=== PATIENT | female | born 1995 | race Hispanic/Latino ===

== ENCOUNTER 2017-01-09 13:03 | Day surgery (SDC) | payer MEDICAID ==
[~2017-01-09] VITALS: Ht 144.8 cm; Wt 56.2 kg
[2017-01-09 13:07] VITALS: BP 98/64; PULSE 87; RESP 16; O2SAT 100
[2017-01-09 14:09] LABS: BASOPHILS % (AUTO) 0.1 % (0-3); EOSINOPHILS % (AUTO) 0 % (0-5); Mean Corpuscular Hemoglobin 22.1 pg (27.0-35.0); Mean Corpuscular Volume 70.3 fL (81-100); NEUTROPHILS % (AUTO) 90.8 % (40-74); Platelet Count 257 bil/L (150-400)
--- NOTE | 2017-01-09 15:29 | ED.REPORT ---
HPI- Female Date of Service Jan 09, 2017 ED Provider: Rashaun Johnson MD History of Present Illness: pain with walking, feels she will faint with walking. Started this am. No nausea or vomiting. did not know she was preganant. slight bleeding this am. still with moderate bleeding. no primary care. last menses may have een 11/21/2016. have 2 children at home. works at [employer] has been there 3 weeks. pain brought her to the walk in clinic. 4/10 with laying down, standing 10/10 pain is midline with some right lateral deviation Nursing Notes Stated Complaint: ABDOMINAL PAIN Chief Complaint: Female Abdominal Pain Nursing Notes Reviewed: Yes Allergies: Coded Allergies: No Known Allergies (Unverified , 01/09/17) General Time Seen by MD: 15:28 Chief Complaint Abdominal pain... (RLQ) Hx Obtained From: Patient Sudden in Onset?: Yes Past Medical History Past Medical History Denies: Asthma, Diabetes mellitus Past Surgical History Reports: Smoking History Never Smoker Social History Alcohol Use: Denies alcohol use Drug Use: Denies drug use Occupation here with brother in law. Ambulatory Status Independent Review of Systems Basic Review of Systems Eyes: Vision NL, No discharge Allergy / Immune: No allergy Psychiatric: Normal thought content Physical Exam Initial Vital Signs Vital Signs (First) Date Time Temp Pulse Resp B/P Pulse Ox O2 Delivery O2 Flow Rate FiO2 01/09/17 13:07 36.5 87 16 98/64 100 01/09/17 21:11 Room Air Initial VS: Reviewed, Vital signs normal General/Constitutional: Well-developed, Well-nourished Head / Eyes: Atraumatic, Normocephalic, PERRL ENT: Mucous membranes moist, Conjunctiva normal, No scleral icterus Neck: Supple, Non-tender, Full range of motion Respiratory: Breath sounds normal, Clear to auscultation, No respiratory distress Cardiovascular: Regular rate & rhythm, Heart sounds normal, Intact distal pulses Abdomen / GI: Soft, Non-tender, No guarding, No rebound, No distention Back: No CVA tenderness Lymphatic: No lymphadenopathy Extremities: Vascular intact, Neuro intact, No swelling, No tenderness Skin: Warm, Dry, No cyanosis Neurologic: Alert, Oriented, Nonfocal Psychiatric: Mood/affect normal, Behavior normal, Normal thought content Female Genitourinary: Telephonic Rn present Vaginal Bleeding / Discharge: Positive: Bleeding mild right adnexal tenderness General/Constitutional: Awake, Alert, No acute distress Respiratory / Chest: Atraumatic, Breath sounds NL, Breath sounds = bilat, No respiratory distress Cardiovascular: Heart rate NL, Regular rhythm, Heart sounds NL Tenderness/Guarding/Rebound: Positive: Tender RLQ... (Moderate) Interpretation & Diagnostics Interpretation & Diagnostics: US results pending Lab Results Interpretation Result Diagram: 01/09/17 1406 01/09/17 1406 Test 01/09/17 14:06 01/09/17 18:29 White Blood Count 14.2th/mm3 (3.8-10.1) Red Blood Count 3.94mil/mm3 (3.90-5.20) Hemoglobin 8.7g/dL (12.0-15.6) Hematocrit 27.7% (35.0-46.0) Mean Corpuscular Volume 70.3fL (81-100) Mean Corpuscular Hemoglobin 22.1pg (27.0-35.0) Mean Corpuscular Hemoglobin Concent 31.4% (32.0-37.0) Red Cell Distribution Width 16.1% (12.3-15.4) Platelet Count 257bil/L (150-400) Neutrophils (%) (Auto) 90.8% (40-74) Lymphocytes (%) (Auto) 6.0% (14-46) Monocytes (%) (Auto) 3.0% (4-12) Eosinophils (%) (Auto) 0% (0-5) Basophils (%) (Auto) 0.1% (0-3) Sodium Level 138mEq/L (134-144) Potassium Level 3.9mEq/L (3.5-5.2) Chloride Level 104mEq/L (97-108) Carbon Dioxide Level 20mmol/L (18-29) Blood Urea Nitrogen 10mg/dL (6-20) Creatinine 0.40mg/dL (0.57-1.00) Estimat Glomerular Filtration Rate 283mL/min (>59) Glucose Level 123mg/dL (60-99) Calcium Level 8.9mg/dL (8.5-10.1) Total Bilirubin 0.3mg/dL (0.0-1.2) Aspartate Amino Transf (AST/SGOT) 17U/L (0-50) Alanine Aminotransferase (ALT/SGPT) 16U/L (0-32) Alkaline Phosphatase 86U/L (25-150) Total Protein 6.6g/dL (6.4-8.4) Albumin 3.6g/dL (3.4-5.0) HCG Beta Subunit 5882mIU/mL Urine Color Yellow (YELLOW) Urine Appearance Clear (CLEAR,HAZY) Urine pH 6.0 (5.0-8.0) Urine Specific [place] 1.015 (1.003-1.035) Urine Protein Negativemg/dL (NEG,TRACE) Urine Glucose (UA) Negativemg/dL (NEGATIVE) Urine Ketones 15mg/dL (NEGATIVE) Urine Occult Blood Large (NEGATIVE) Urine Nitrite Negative (NEGATIVE) Urine Bilirubin Negative (NEGATIVE) Urine Urobilinogen Normalmg/dL (NORMAL) Urine Leukocyte Esterase Negative (NEGATIVE) Urine RBC >50/hpf (0-2) Urine WBC 0-5/hpf (0-5) Urine Epithelial Cells Few/hpf (NONE-MOD) Urine Crystals None seen (NONE SEEN) Urine Bacteria Few/hpf (NONE-FEW) Urine Hyaline Casts None/lpf (NONE) Urine Granular Casts None seen (NONE SEEN) Urine Waxy Casts None seen (NONE SEEN) Urine Red Blood Cell Casts None seen (NONE SEEN) Urine White Blood Cell Casts None seen (NONE SEEN) Urine Mucus None seen (None Seen) Urine Trichomonas None seen (NONE SEEN) Urine Yeast None (NONE SEEN) Urinalysis Comment None Urine Culture Reflexed Not indicated CT Abd / Pelvis Interpretation PROCEDURE: CT ABDOMEN AND PELVIS WITH CONTRAST ([id number]) INDICATIONS: right side abd pain TECHNIQUE: After the administration of intravenous contrast, 5 mm thick sections acquired from the diaphragm to the symphysis. 5 mm coronal and sagittal reformats were acquired. For radiation dose reduction, the following was used: automated exposure control, adjustment of mA and/or kV according to patient size. COMPARISON: None. FINDINGS: Image quality: Excellent. ABDOMEN: Lung bases: Lung bases are clear. Heart size is normal. Solid organs: Liver and spleen are normal in size and enhancement. Gallbladder is present. Biliary system is non dilated. Pancreas enhances normally. No adrenal nodules. Kidneys demonstrate normal size and enhancement, without hydronephrosis. Peritoneum and bowel: Bowel loops demonstrate normal wall thickness and caliber. Mixed density including high density fluid extending in the paracolic gutters about the spleen and liver. Normal appendix. Nodes and vessels: No retroperitoneal or mesenteric adenopathy by size criteria. Aorta and inferior vena cava are normal in size. Miscellaneous: No ventral hernias. PELVIS: Genitourinary: Bladder wall thickness is normal. Miscellaneous: Moderate mixed mostly high density fluid throughout the pelvis. Bones: No suspicious bony lesions. No vertebral body compression fractures. IMPRESSION: 1. Mixed mostly high density pelvic fluid extending along the paracolic gutters into the upper quadrants consistent with blood products. Given the patient's clinical history of a positive test and no intrauterine gestation identified on ultrasound findings are concerning for ectopic . Consider obstetrical consultation. 2. Findings and recommendations discussed with Dr. Johnson via telephone [phone] at 6:30 pm on 01/09/2017. Dictated by: Napoleon Parikh M.D. on 01/09/2017 at 18:52 Approved by: Napoleon Parikh M.D. on 01/09/2017 at 18:59 Re-Eval/Medical Decision Med Decision/Clinical Course 21 year old female presents for sudden onset of right lower quadrant pain since 7 am today. Patient with positive RH positive quant at 5882. US results not available, verbal report states no viable , fluid around both ovaries Ct indicates ruptured etopic . OB consult arranged, OB suggests transfer to [place]. Care of patient turned over to Dr. Johnson. I assumed care of this patient from [facility]. Workup thus far is consistent with ruptured ectopic . Second large bore IV was obtained and fluid bolus was administered. The patient remained hemodynamically stable. I had concern about the appropriateness of transferring this potentially unstable patient to a different facility. I requested TIPPING MACHINE OPERATOR AUTOMATIC evaluate the patient at the bedside. TIPPING MACHINE OPERATOR AUTOMATIC Dr. Leon evaluated the patient at the bedside and had a direct conversation with TIPPING MACHINE OPERATOR AUTOMATIC at [place]. The decision was made to keep the patient here at [facility] with plan for potential operative intervention. The patient remains moderately stable throughout my involvement in their care and they were admitted to the TIPPING MACHINE OPERATOR [employer]OM[employer] service. Consultation : Referral / Consult Name: Karlee Leon MD Call Returned at: 19:35 Note: OB. Requested transfer, says operating room is not available. Counseled Regarding: Diagnosis, Lab results, Need for follow-up, When/why to return to ED Discharge & Departure Impression: Primary Impression: Ectopic Location of ectopic : unspecified location Intrauterine status: unspecified Qualified Code: O00.90 - Unspecified ectopic without intrauterine Additional Impressions: Ruptured ectopic Hemoperitoneum Hypotension Hypotension type: unspecified hypotension type Qualified Code: I95.9 - Hypotension, unspecified Abdominal pain Abdominal location: unspecified location Qualified Code: R10.9 - Unspecified abdominal pain Disposition: ADMITTED TO HOSPITAL Discharge Condition All VS Reviewed: Yes Condition: Improved Crit Care Except Billable Proc Time Spent: 75-104 minutes Services Performed: Patient management by me, Time spent at bedside, Reviewing test results, Reviewing imaging, Discussing patient care, Documentation in record, Time with fam/surrogate EDSupervising Provider for APC: Rashaun Johnson MD Attestation Portions of this note were transcribed by Vane Pak. I, Dr. Johnson personally performed the history, physical exam and medical decision-making; I reviewed and confirmed the accuracy of the information in the transcribed note. Signed by: Julee Ramirez, 01/09/2017 at 2000. Rashaun Johnson MD Jan 09, 2017 15:28 Eunice Pinto Jan 09, 2017 16:24 VANE PAK Jan 09, 2017 19:37
[2017-01-09] MEDS ORDERED: 0.9% Sodium Chloride 1,000 ML IV ONE (16:45)
[2017-01-09] MEDS ORDERED: HYDROmorphone 0.5 mg/0.5 mL iSecure Syringe IVPUSH ONE (17:05)
[2017-01-09 18:47] LABS: COLOR,URINE YELLOW (YELLOW)
[2017-01-09 18:48] LABS: APPEARANCE,URINE CLEAR (CLEAR,HAZY); OCCULT BLOOD,URINE LARGE (NEGATIVE); UROBILINOGEN,URINE NORMAL (NORMAL)
--- NOTE | 2017-01-09 19:06 | DRSVH ---
PROCEDURE: CT ABDOMEN AND PELVIS WITH CONTRAST ([id number]) INDICATIONS: right side abd pain TECHNIQUE: After the administration of intravenous contrast, 5 mm thick sections acquired from the diaphragm to the symphysis. 5 mm coronal and sagittal reformats were acquired. For radiation dose reduction, the following was used: automated exposure control, adjustment of mA and/or kV according to patient siz e. COMPARISON: None. FINDINGS: Image quality: Excellent. ABDOMEN: Lung bases: Lung bases are clear. Heart size is normal. Solid organs: Liver and spleen are normal in size and enhancement. Gallbladder is present. Biliary system is non dilated. Pancreas enhances normally. No adrenal nodules. Kidneys demonstrate normal size and enhancement, without hydronephrosis. Peritoneum and bowel: Bowel loops demonstrate normal wall thickness and caliber. Mixed density inclu ding high density fluid extending in the paracolic gutters about the spleen and liver. Normal append ix. Nodes and vessels: No retroperitoneal or mesenteric adenopathy by size criteria. Aorta and inferior vena cava are normal in size. Miscellaneous: No ventral hernias. PELVIS: Genitourinary: Bladder wall thickness is normal. Miscellaneous: Moderate mixed mostly high density fluid throughout the pelvis. Bones: No suspicious bony lesions. No vertebral body compression fractures. IMPRESSION: 1. Mixed mostly high density pelvic fluid extending along the paracolic gutters into the upper quadra nts consistent with blood products. Given the patient's clinical history of a positive test and no intrauterine gestation identified on ultrasound findings are concerning for ectopic . Consider obstetrical consultation. 2. Findings and recommendations discussed with Dr. Johnson via telephone [phone] at 6:30 pm on . Dictated by: Napoleon Parikh M.D. on 01/09/2017 at 18:52 Approved by: Napoleon Parikh M.D. on 01/09/2017 at 18:59
[2017-01-09 19:53] VITALS: BP 121/57; PULSE 91; RESP 19; O2SAT 100
[2017-01-09 21:11] VITALS: BP 125/50; PULSE 94; RESP 23; O2SAT 100
[2017-01-09] MEDS ORDERED: CeFAZolin Inj 2 GM in IV Premix 1 EACH IV SCH (21:15)
--- NOTE | 2017-01-09 21:22 | PCM.HPSURG ---
Subjective Date of Service: Jan 09, 2017 Referring Provider: Admitting Physician: Primary Care Physician: Nopcp Attending Physician: Chief Complaint Abdominal pain History of Present Illness 21 Y LMP 7 weeks ago Sudden suprapubic pain radiates to the periumbilical area. Pain was 10/10 and now down to 6/10. No N/V. OB Hx: Previous 2 then a CS 10 months ago at [place] Allergy Allergies: Coded Allergies: No Known Allergies (Unverified , 01/09/17) Social History Hx Alcohol Use: No Hx Substance Use: No Hx Tobacco Use: No PMH Cardiovascular History History of Heart Problems?: No Respiratory History of Respiratory Problem: No Neurological History Hx Neurologic Problems?: No Gastrointestinal History HX of GI Problems?: No Social History Hx Alcohol Use: NoHx Substance Use: No Smoking Status: Never Smoker Family History PMH Family Member: Mother (HTN ) Review of Systems Constitutional: Denies: Fever Respiratory: Denies: Cough Gastrointestinal: Denies: Nausea, Vomiting Genitourinary: Denies: Dysuria Skin: Denies: Bruising Psychologic: Denies: Disorientation Endocrine: Denies: Change in Appitite H&P Surgical Exam Exam Neck: Supple Lungs: Clear to Auscultation, Clear to Percussion Heart: Regular Rate/Rhythm, Normal S1, Normal S2 Abdomen: Soft, Other (suprapubic and periumbilical tenderness, no rebound tenderness. ) Neuro: Reflexes 2+ Assessment & Plan Assessment 21 Y Highly suspecting ruptured ectopic based on abdominal pain Beta HCG Quant 5000+ free high density fluid in abdomen by US and CT. Unable to visualize adnexal mass by imaging possibly secondary to the blood in the pelvic cavity. In presence of and family member, pt was offered diagnostic laparoscopy with possible salpingectomy , oophorectomy and possible laparotomy observation as an alternative but risk of internal hemorrhage with current anemia outweigh the benefits of observation. Patient desires to proceed with surgery. Surgery risk, benefits and alternatives discussed in details, risks includes and not limited to loss of fertility, infection, bleeding, injury to adjacent organs, second surgery and risk of anesthesia. Informed consent was signed. All questions answered. Online Producer via phone was used #[id number](bCODE). Karlee Leon MD Jan 09, 2017 21:21
[2017-01-09] MEDS ORDERED: Succinylcholine Chloride 20 mg/mL 5 mL Inj ONE (21:43)
[2017-01-09] MEDS ORDERED: Dexamethasone 4 mg/mL Inj ONE (21:43)
[2017-01-09] MEDS ORDERED: EPHEDrine/NS 5 mg/mL 5 mL Syringe ONE (21:43)
[2017-01-09] MEDS ORDERED: Glycopyrrolate 0.2 MG/ML 1mL Inj ONE (21:43)
[2017-01-09] MEDS ORDERED: Propofol 10,000 mCg/mL 20 mL Inj ONE (21:43)
[2017-01-09] MEDS ORDERED: Rocuronium 10 mg/mL 5 mL Inj ONE (21:43)
[2017-01-09] MEDS ORDERED: Ondansetron 2 mg/mL 2 mL Inj ONE (21:43)
[2017-01-09] MEDS ORDERED: fentaNYL-PF 50 mCg/mL 2 mL Inj ONE (21:43)
[2017-01-09] MEDS ORDERED: Neostigmine 1 mg/mL 10 mL Inj ONE (21:43)
[2017-01-09] MEDS ORDERED: Lactated Ringer's 1,000 ML IV ONE (21:47)
[2017-01-09 21:49] VITALS: BP 118/55; PULSE 101; RESP 19; O2SAT 100
[2017-01-09] MEDS ORDERED: Lactated Ringer's 500 ML IV PRN (22:12)
[2017-01-09] MEDS ORDERED: Lactated Ringer's 1,000 ML IV SCH (22:12)
--- NOTE | 2017-01-09 22:12 | PCM.HPANE ---
Patient Data Surgeon Admitting Provider: Attending Provider:Karlee Leon MD Primary Care Physician:Ann Other Provider: Reason for Visit Ruptured Ectopic Ht/WT & BMI Height (Feet): 4 Height (Inches): 9 Weight (Kilograms): 56 Body Mass Index Allergies Coded Allergies: No Known Allergies (Unverified , 01/09/17) Past Anesthesia History Anesthesia History: Denies:: Abnormal Airway, Anesthesia Reactions, Difficult Intubation, Fam Anesthesia Reaction, Fam Malignant Hypertherm, Malignant Hyperthermia History History of ENT Problems?: No HEENT History: Denies:: Abnormal Airway Cataracts Difficult Intubation Dysphagia Glaucoma Hearing Problem Sinus Problem TMJ Denture Type: None Teeth Condition: Within Normal Limits Hx of Heart Problems?: No Cardiovascular History: Denies:: AICD Abdominal Aortic Aneurism Atrial Fibrillation Cardiac Surgery Chest Pain Congestive Heart Failure Coronary Artery Disease Edema Heart Murmur Hypertension Irregular Heartbeat Pacemaker Peripheral Vascular Rheumatic Fever Thrombophlebitis Valvular Heart Disease Hx of Respiratory Problem?: No Respiratory History: Denies:: Asthma COPD Chest Surgery Cough Dyspnea Emphysema Hemoptysis Oxygen Administration Pneumonia Pulmonary Embolism Tuberculosis Use of C-PAP Machine Use of Inhalers / NEBS Hx Neurologic Problems?: No Hx of GI Problems?: No Hx of Problems?: Yes (ectopic now) Hx Musculoskeletal Problems?: No Hx Surgeries?: Yes () Hx Alcohol Use: NoHx Substance Use: No Smoking Status: Never Smoker Stop/Bang Risk Assessment Category Category 1A: Patient has history of documented sleep apnea, and HAS NOT received any narcotic, sedative or anesthesia administration during this stay. Category 1B: Patient has history of documented sleep apnea, and HAS received any narcotic , sedative or anesthesia administration during this stay Category 2: Patient has SUSPECTED Obstructive Sleep Apnea, and HAS received any narcotic , sedative or anesthesia administration during this stay. Category 3: Patient has SUSPECTED Obstructive Sleep Apnea and HAS NOT received narcotic, sedative or anesthesia administration during this stay. Category 4: Outpatient in Procedural Areas with known sleep apnea or who screen positive for High Risk via the STOP/BANG questionnaire. Exam Exam Vital Signs Vital Signs Date Time Temp Pulse Resp B/P Pulse Ox O2 Delivery O2 Flow Rate FiO2 01/09/17 21:11 94 23 125/50 100 Room Air 01/09/17 19:53 91 19 121/57 100 General Appearance: Alert, Oriented X3 HEENT/AIRWAY: MP 2 Lungs: Clear to Auscultation, Clear to Percussion Heart: Exam Unremarkable, Regular Rate/Rhythm, Normal S1, Normal S2 Meds/Labs/Diagnostics Admission Meds Current Medications Sodium Chloride (Normal Saline) 1,000 ml @ 0 mls/hr Q0M ONCE IV Last administered on 01/09/17 16:43; Start 01/09/17 at 16:45; Stop 01/09/17 at 16:46; Status DC Hydromorphone HCl (Dilaudid Inj) 0.5 mg ONCE ONCE IVPUSH Last administered on 01/09/17 17:14; Start 01/09/17 at 17:05; Stop 01/09/17 at 17:06; Status DC Labs Test 01/09/17 14:06 01/09/17 18:29 01/09/17 20:20 White Blood Count 14.2th/mm3 (3.8-10.1) Red Blood Count 3.94mil/mm3 (3.90-5.20) Mean Corpuscular Volume 70.3fL (81-100) Mean Corpuscular Hemoglobin 22.1pg (27.0-35.0) Mean Corpuscular Hemoglobin Concent 31.4% (32.0-37.0) Red Cell Distribution Width 16.1% (12.3-15.4) Platelet Count 257bil/L (150-400) Neutrophils (%) (Auto) 90.8% (40-74) Lymphocytes (%) (Auto) 6.0% (14-46) Monocytes (%) (Auto) 3.0% (4-12) Eosinophils (%) (Auto) 0% (0-5) Basophils (%) (Auto) 0.1% (0-3) Sodium Level 138mEq/L (134-144) Potassium Level 3.9mEq/L (3.5-5.2) Chloride Level 104mEq/L (97-108) Carbon Dioxide Level 20mmol/L (18-29) Blood Urea Nitrogen 10mg/dL (6-20) Creatinine 0.40mg/dL (0.57-1.00) Estimat Glomerular Filtration Rate 283mL/min (>59) Glucose Level 123mg/dL (60-99) Calcium Level 8.9mg/dL (8.5-10.1) Total Bilirubin 0.3mg/dL (0.0-1.2) Aspartate Amino Transf (AST/SGOT) 17U/L (0-50) Alanine Aminotransferase (ALT/SGPT) 16U/L (0-32) Alkaline Phosphatase 86U/L (25-150) Total Protein 6.6g/dL (6.4-8.4) Albumin 3.6g/dL (3.4-5.0) HCG Beta Subunit 5882mIU/mL Urine Color Yellow (YELLOW) Urine Appearance Clear (CLEAR,HAZY) Urine pH 6.0 (5.0-8.0) Urine Specific [place] 1.015 (1.003-1.035) Urine Protein Negativemg/dL (NEG,TRACE) Urine Glucose (UA) Negativemg/dL (NEGATIVE) Urine Ketones 15mg/dL (NEGATIVE) Urine Occult Blood Large (NEGATIVE) Urine Nitrite Negative (NEGATIVE) Urine Bilirubin Negative (NEGATIVE) Urine Urobilinogen Normalmg/dL (NORMAL) Urine Leukocyte Esterase Negative (NEGATIVE) Urine RBC >50/hpf (0-2) Urine WBC 0-5/hpf (0-5) Urine Epithelial Cells Few/hpf (NONE-MOD) Urine Crystals None seen (NONE SEEN) Urine Bacteria Few/hpf (NONE-FEW) Urine Hyaline Casts None/lpf (NONE) Urine Granular Casts None seen (NONE SEEN) Urine Waxy Casts None seen (NONE SEEN) Urine Red Blood Cell Casts None seen (NONE SEEN) Urine White Blood Cell Casts None seen (NONE SEEN) Urine Mucus None seen (None Seen) Urine Trichomonas None seen (NONE SEEN) Urine Yeast None (NONE SEEN) Urinalysis Comment None Urine Culture Reflexed Not indicated Hemoglobin 8.4g/dL (12.0-15.6) Hematocrit 26.5% (35.0-46.0) Plan Impression Patient chart reviewed, patient interviewed and anesthestic plan with risks, benefits, and alternatives discussed, and informed consent obtained. ASA Physical Status: ASA1 Plus Emergency Anesthetic Plan: GA Bene/Risks/Altern/Consents: Yes HP Complete Prior to Induction: Yes Other R/b/a and H and P done with the help of a telephone american sign language interpreter Ascencion Garces MD Jan 09, 2017 21:47
[2017-01-09] MEDS ORDERED: Phenylephrine 10,000 mCg/mL Inj IVPUSH PRN (22:15)
[2017-01-09] MEDS ORDERED: HYDROmorphone 1 mg/mL Inj IVPUSH PRN (22:15)
[2017-01-09] MEDS ORDERED: Atropine 0.4 mg/mL Inj IVPUSH PRN (22:15)
[2017-01-09] MEDS ORDERED: Labetalol 5 mg/mL 4 mL Inj IV PRN (22:15)
[2017-01-09] MEDS ORDERED: EPHEDrine Sulfate 50 mg/mL Inj IVPUSH PRN (22:15)
[2017-01-09] MEDS ORDERED: Ondansetron 2 mg/mL 2 mL Inj IVPUSH PRN (22:15)
[2017-01-09] MEDS ORDERED: MetoCLOpramide 5 mg/mL 2 mL Inj IVPUSH PRN (22:15)
[2017-01-09] MEDS ORDERED: fentaNYL-PF 50 mCg/mL 2 mL Inj IVPUSH PRN (22:15)
[2017-01-10] VITALS (9 sets, daily range): BP systolic 101–130; BP diastolic 47–71; PULSE 80–132; RESP 15–24; O2SAT 92–100
--- NOTE | 2017-01-10 00:24 | PCM.ANEP1 ---
Post Anesthesia PACU Phase 1 Assessment Vital Signs Vital Signs Date Time Temp Pulse Resp B/P Pulse Ox O2 Delivery O2 Flow Rate FiO2 01/09/17 21:49 101 19 118/55 100 Room Air 01/09/17 21:11 94 23 125/50 100 Room Air 01/09/17 19:53 91 19 121/57 100 Anesthetic Administered: GA Level of Alertness: Awake, talking CARTWRIGHT's with Equal Strength: Yes Pain: No Nausea or Vomiting: No CV Function & Hydration Stable: Yes Airway Device: Oxygen Delivery: Simple Mask Lungs: Clear to Auscultation, Clear to Percussion PACU Phase 2 Assessment Complications: No Follow up Care: No Patient Instructions Provided: N/A Comments See anesth record for PACU VS. PACU VSS Ascencion Garces MD Jan 10, 2017 00:24
[2017-01-10] MEDS ORDERED: Promethazine 50 mg Rectal Suppository RECTAL PRN (00:30)
[2017-01-10] MEDS ORDERED: MetoCLOpramide 5 mg/mL 2 mL Inj IVPUSH PRN (00:30)
[2017-01-10] MEDS ORDERED: oxyCODONE-Acetamin 5-325 mg Tablet PO PRN (00:30)
[2017-01-10] MEDS ORDERED: Alum-Mag Hydrox-Simeth 30 mL Suspension PO PRN (00:30)
[2017-01-10] MEDS ORDERED: Senna-Docusate 8.6-50 mg Tablet PO PRN (00:30)
[2017-01-10] MEDS ORDERED: Ondansetron 2 mg/mL 2 mL Inj IVPUSH PRN (00:30)
[2017-01-10] MEDS ORDERED: HYDROmorphone 0.5 mg/0.5 mL iSecure Syringe IVPUSH PRN (00:30)
--- NOTE | 2017-01-10 01:15 | PCM.DIOB ---
Obstetrical Disch Instruction Date of Service: Jan 10, 2017 Dates of Hospitalization Date of Hospital Admission Jan 09, 2017 at 23:05 Providers Admitting Physician: Karlee Leon MD Primary Care Physician: Ann Attending Physician: Karlee Leon MD Discharge Diagnosis Discharge Diagnosis Right ectopic status post partial salpingectomy Problems: Diet Discharge Diet: No restrictions Activity Discharge Activity-General: No restrictions, Pelvic Rest for 6 weeks (no sex, douching nor tampons ), Balance rest and activity, No lifting >10 pounds for 4- 6 weeks Dressing and Incisional Care Dressing Care: Allow Steri Stripes to fall off Hygiene: May shower (after 24 hours from your surgery ), Wash incision with soap & water, DO NOT soak incision under water, NO bathtub, hot tub or whirlpool Follow Up Plan Follow-up Provider (F9): Karlee Leon MD Follow-up appointment: Weeks (in 1-2 weeks ) Call your provider for: Fever or Chills, Shortness of breath, Heavy vaginal bleeding, Heavy bleeding, Epigastric pain, Excessive constipation, Vaginal discomfort, Red painful breasts Karlee Leon MD Jan 10, 2017 01:15
[2017-01-10] MEDS ORDERED: DOCU-41 PO (01:17)
[2017-01-10] MEDS ORDERED: OXYC1TAB24 PO (01:17)
[2017-01-10] MEDS ORDERED: IBUP-1827 PO (01:17)
--- NOTE | 2017-01-10 01:54 | OP ---
[address] [address] OPERATIVE REPORT PATIENT: JUAN MANUEL HOBBS : 1995 MR#: [id number] ADMIT: 01/09/2017 JOB ID: [id number] DATE OF SURGERY: 01/09/2017 PREOPERATIVE DIAGNOSIS(ES): Abdominal pain, highly suspicious of a possible ruptured ectopic . POSTOPERATIVE DIAGNOSIS(ES): Right ectopic in the isthmus portion of the tube. SURGEON: Karlee Leon M.D. MACHINE I TRIMMER: Child Health Associate was required for exposure and handling of the laparoscopic instrument and safe completion of the procedure. ANESTHESIA: General endotracheal. FINDINGS: Large hematoma was obscuring the pelvis. Right ectopic located in the isthmus section of the fallopian tube. Normal left fallopian tube. Normal ovaries. Adhesions noted to be extended from the peritoneal surface of the anterior abdominal wall just above the site of the previous delivery scar involving the peritoneum. COMPLICATIONS: None. ESTIMATED BLOOD LOSS: 50 mL. INTRAVENOUS FLUIDS: 1800 mL. URINE OUTPUT: 120 mL. Bladder was straight cathed prior to the start of the procedure. SPECIMEN: Partial segment of the right fallopian tube including the ectopic . INDICATION FOR THE PROCEDURE: This is a 21 years old 5, para 3-0-1-3 at approximately weeks of gestation by last menstrual period who presented with history of vaginal bleeding and acute abdominal pain. Ultrasound was performed in the emergency department showed no intrauterine and peritoneal free fluid. Beta hCG quant was 5882. CT scan was performed and revealed a high-density pelvic fluid extended to the paracolic gutters which most likely consistent with blood. With above finding, ruptured ectopic is highly suspected. The patient was offered diagnostic laparoscopy with possible salpingectomy, oophorectomy and possible laparotomy. Observation as an alternative was discussed but, with risk of internal hemorrhage and with the current anemia, surgery benefits would outweigh the benefit and the risk of observation. Risk and benefits and alternatives of the surgery was discussed with the patient in detail. Risks may include and are not limited to the risk of loss of fertility, infection, bleeding, injury to adjacent organs, second surgery and risk of anesthesia. Informed consent was signed. All questions were answered. The patient desires to proceed with the surgery. Labor Contract Analyst via phone was used for discussing the assessment and plan and consenting for the surgery. Number of the porcelain enamel repairer was [id number], name Maris. PROCEDURE: After informed consent was obtained, the patient was taken to the operation room. She was placed under general anesthesia. She was prepped and draped in usual sterile fashion for abdominal and pelvic procedure. A speculum was placed into the vagina and the cervix was very well visualized. Anterior lip of the cervix was grasped with single-tooth tenaculum. Then, the uterine manipulator acorn was placed through the cervix and was articulated with a single-toothed tenaculum. Maintaining sterile technique, the attention was turned to the abdominal part of the procedure where an infraumbilical skin incision was made and was extended to the fascia with blunt and sharp dissection. The fascia was grasped and brought to the incision, was incised with scissors. The peritoneum was then grasped and identified and brought to the incision and was entered with sharp dissection in an area clear of vascularity or adhesions. Then, a 12 mm trocar was introduced through the infraumbilical incision site and was secured with the balloon tip. Then, the scope was introduced and pneumoperitoneum was established. The peritoneal cavity was examined and the findings as mentioned above. Initially the pelvis was obscured with clot. The uterus was elevated and the ectopic was identified in the right fallopian tube. A suprapubic midline incision was made to accommodate an 11 mm trocar that was introduced under direct visualization. Then through angled operating scope, a LigaSure cautery device was used to excise the portion of the tube that involved the ectopic . Hemostasis was ensured. The clot in the pelvis was suctioned and the pelvis was thoroughly irrigated. The pressure was decreased. The site of the excised fallopian tube segment was examined and hemostasis was ensured. The infraumbilical trocar was removed under direct visualization after decreasing the intraperitoneal pressure. The site of the excised tube was re-examined after decreasing the intraperitoneal pressure and was noted to be hemostatic. The excised fallopian tube was exteriorized inside an Endobag prior to removal of the suprapubic trocar. The scope was removed. The CO2 gas was allowed to escape. The patient was given two deep breaths to facilitate deflating the gas from the peritoneal cavity. The infraumbilical trocar was removed. Then, the fascia was closed with 0-Vicryl in a running fashion. The skin incisions were closed with 3-0 Vicryl in subcuticular fashion. Steri-Strips were applied followed by adhesive bandage. All instruments were removed from the cervix and the vagina. The patient was awakened from anesthesia and was transferred to the recovery room in satisfactory condition. All instrument, needles and sponge counts were correct x2. Patient tolerated the procedure well. BRIANNA
--- NOTE | 2017-01-10 02:02 | NUR ---
POST OP Patient arrives from PACU sleepy. Progressive Care Nurse on a stick used for initial assessment. Patient denies any pain or nausea. Dressings to lower abdomen are c/d/i. Patient's main concerns were regarding future ability to conceive. MD was able to address this at the bedside. Patient appears to be resting comfortably.
[2017-01-10 06:11] LABS: BASOPHILS % (AUTO) 0.1 % (0-3); EOSINOPHILS % (AUTO) 0 % (0-5); MONOCYTES % (AUTO) 2.3 % (4-12); Mean Corpuscular Hemoglobin 22.2 pg (27.0-35.0); Mean Corpuscular Volume 71.7 fL (81-100); NEUTROPHILS % (AUTO) 88.4 % (40-74); Platelet Count 234 bil/L (150-400)
[2017-01-10] MEDS ORDERED: Senna-Docusate 8.6-50 mg Tablet PO SCH (08:30)
--- NOTE | 2017-01-10 08:46 | NUR ---
Social Work- Brief Note/Discharge Data: EMR reviewed. Pt is a 21 year old female admitted 01/09/17 for ruptured ectopic . Pt is POD 1. Pt is self pay insurance. Pt has no PCP. Pt's discharge orders are active. Pt is Czech Speaking. Pt resides at home with her where she is independent. Pt has no DPOA on file at this time. Pt to discharge home with to transport via POV. No discharge needs identified. Assessment: Pt who is independent at baseline. Plan: Pt resides at home with her where she is independent. Pt to discharge home with to transport via POV. No discharge needs identified. Meghana Lopez MSW
[2017-01-10] MEDS ORDERED: FERR-83 PO (09:18)
[2017-01-10] MEDS ORDERED: ASCO250T7 PO (09:19)
--- NOTE | 2017-01-10 09:21 | PCM.DC.OB ---
Obstetrical Discharge Summary Date of Service Jan 10, 2017 Date of hospital admission Date of Discharge: Jan 10, 2017 Providers Admitting Physician: Primary Care Physician: Ann Attending Physician: Yamile Junior MD Diagnosis at Time of Discharge Right ectopic status post partial salpingectomy Problems: Brief History and Physical: This is a 21 years old 5, para 3-0-1-3 presented at approximately 7 weeks of gestation by last menstrual period with history of vaginal bleeding and acute abdominal pain. Ultrasound was performed in the emergency department showed no intrauterine and peritoneal free fluid. Beta hCG quant was 5882. CT scan was performed and revealed a high-density pelvic fluid extended to the paracolic gutters which most likely consistent with blood. With above finding, ruptured ectopic is highly suspected. Patient underwent to laparoscopic partial salpingectomy and evacuation of the hematoperitonium. Patient was observed overnight. Day of discharge: patient was ambulating, tolerating regular diet and voiding without difficulty. Pain was well controlled with oral pain medications. Discussed operative finding, operative procedure and effect on future fertility with patient. Patient desires discharge. Offered depo provera injection for control. Patient desires to wait until further evaluation at the office to initial control. Discussed the importance of early detection of ectopic in future. Patient was encouraged to seek medical care as soon ass she miss her menstrual cycle for 5 days. If ectopic was diagnosed early surgery might be avoided by methotrexate treatment. Patient confirmed understanding. Vital Signs (Last) Date Time Temp Pulse Resp B/P Pulse Ox O2 Delivery O2 Flow Rate FiO2 01/10/17 08:07 36.8 97 18 101/63 100 Room Air 01/10/17 01:15 2.00 AOX2 Chest: EAE B/L CVS: S1+S2+0 Abd: soft no tenderness. Lext: positive pulse B/L and no edema. Laboratory Tests 72 Hours Test 01/09/17 14:06 01/09/17 18:29 01/09/17 20:20 01/10/17 05:37 White Blood Count 14.2th/mm3 (3.8-10.1) 10.7th/mm3 (3.8-10.1) Red Blood Count 3.94mil/mm3 (3.90-5.20) 3.43mil/mm3 (3.90-5.20) Hemoglobin 8.7g/dL (12.0-15.6) 8.4g/dL (12.0-15.6) 7.6g/dL (12.0-15.6) Hematocrit 27.7% (35.0-46.0) 26.5% (35.0-46.0) 24.6% (35.0-46.0) Mean Corpuscular Volume 70.3fL (81-100) 71.7fL (81-100) Mean Corpuscular Hemoglobin 22.1pg (27.0-35.0) 22.2pg (27.0-35.0) Mean Corpuscular Hemoglobin Concent 31.4% (32.0-37.0) 30.9% (32.0-37.0) Red Cell Distribution Width 16.1% (12.3-15.4) 16.4% (12.3-15.4) Platelet Count 257bil/L (150-400) 234bil/L (150-400) Neutrophils (%) (Auto) 90.8% (40-74) 88.4% (40-74) Lymphocytes (%) (Auto) 6.0% (14-46) 9.0% (14-46) Monocytes (%) (Auto) 3.0% (4-12) 2.3% (4-12) Eosinophils (%) (Auto) 0% (0-5) 0% (0-5) Basophils (%) (Auto) 0.1% (0-3) 0.1% (0-3) Sodium Level 138mEq/L (134-144) Potassium Level 3.9mEq/L (3.5-5.2) Chloride Level 104mEq/L (97-108) Carbon Dioxide Level 20mmol/L (18-29) Blood Urea Nitrogen 10mg/dL (6-20) Creatinine 0.40mg/dL (0.57-1.00) Estimat Glomerular Filtration Rate 283mL/min (>59) Glucose Level 123mg/dL (60-99) Calcium Level 8.9mg/dL (8.5-10.1) Total Bilirubin 0.3mg/dL (0.0-1.2) Aspartate Amino Transf (AST/SGOT) 17U/L (0-50) Alanine Aminotransferase (ALT/SGPT) 16U/L (0-32) Alkaline Phosphatase 86U/L (25-150) Total Protein 6.6g/dL (6.4-8.4) Albumin 3.6g/dL (3.4-5.0) HCG Beta Subunit 5882mIU/mL Urine Color Yellow (YELLOW) Urine Appearance Clear (CLEAR,HAZY) Urine pH 6.0 (5.0-8.0) Urine Specific [place] 1.015 (1.003-1.035) Urine Protein Negativemg/dL (NEG,TRACE) Urine Glucose (UA) Negativemg/dL (NEGATIVE) Urine Ketones 15mg/dL (NEGATIVE) Urine Occult Blood Large (NEGATIVE) Urine Nitrite Negative (NEGATIVE) Urine Bilirubin Negative (NEGATIVE) Urine Urobilinogen Normalmg/dL (NORMAL) Urine Leukocyte Esterase Negative (NEGATIVE) Urine RBC >50/hpf (0-2) Urine WBC 0-5/hpf (0-5) Urine Epithelial Cells Few/hpf (NONE-MOD) Urine Crystals None seen (NONE SEEN) Urine Bacteria Few/hpf (NONE-FEW) Urine Hyaline Casts None/lpf (NONE) Urine Granular Casts None seen (NONE SEEN) Urine Waxy Casts None seen (NONE SEEN) Urine Red Blood Cell Casts None seen (NONE SEEN) Urine White Blood Cell Casts None seen (NONE SEEN) Urine Mucus None seen (None Seen) Urine Trichomonas None seen (NONE SEEN) Urine Yeast None (NONE SEEN) Urinalysis Comment None Urine Culture Reflexed Not indicated Hospital Course: Diet Discharge Diet: No restrictions Activity Discharge Activity-General: No restrictions, Pelvic Rest for 6 weeks (no sex, douching nor tampons ), Balance rest and activity, No lifting >10 pounds for 4- 6 weeks Dressing and Incisional Care Dressing Care: Allow Steri Stripes to fall off Hygiene: May shower (after 24 hours from your surgery ), Wash incision with soap & water, DO NOT soak incision under water, NO bathtub, hot tub or whirlpool Follow Up Plan Follow-up Provider (F9): Yamile Junior MD Follow-up appointment: Weeks (in 1-2 weeks ) Call your provider for: Fever or Chills, Shortness of breath, Heavy vaginal bleeding, Heavy bleeding, Epigastric pain, Excessive constipation, Vaginal discomfort, Red painful breasts Ascorbic Acid (Vitamin C) 250 Mg Tab.chew 250 MG PO BID Prescribed by: YAMILE JUNIOR MD Docusate Sodium (Colace) 100 Mg Capsule 100 MG PO BID PRN PRN For Constipation Prescribed by: YAMILE JUNIOR MD Ferrous Sulfate (Ferrous Sulfate) 325 Mg Tablet 325 MG PO BID Prescribed by: YAMILE JUNIOR MD Ibuprofen (Ibuprofen) 600 Mg Tablet 600 MG PO QID PRN PRN For Pain Prescribed by: YAMILE JUNIOR MD oxyCODONE-Acetaminophen 5-325 mg (oxyCODONE-Acetaminophen 5-325 mg) 1 Each Tablet 1-2 TAB PO Q4H PRN PRN For Moderate Pain Prescribed by: YAMILE JUNIOR MD Disposition Disposition: home. Discharge Condition: stable. Yamile Junior MD Jan 10, 2017 09:20
--- NOTE | 2017-01-10 10:49 | NUR ---
DISCHARGE Patient rated her pain as 2/10, which is tolerable for her. Patient did not want any pain medication at this time. Diet was advanced to a general diet. She ate 50 % of her breakfast. Tolerating liquids PO and her diet well. Denies nausea. No emesis noted. Denies SOB. Patient has been ambulating with SBA in the room. Tolerated activity well. Dressing in her abdomen is CDI. Voiding without any problems. No vaginal discharge per patient. IV saline lock d/cd. Discharge instructions, care notes and prescription was given to the patient and she verbalized understanding. Discharged to home with her and all her personal belonging. (Copy of D/C is in the chart) *CHIEF ENGINEER DRILLING AND RECOVERY WAS AT THE BEDSIDE FOR ASSESSMENTS AND DISCHARGE.
--- NOTE | 2017-01-11 16:05 | PATH ---
SURGICAL PATHOLOGY Attending Physician:Karlee Leon CASE STATUS: Signed Out PATIENT NAME: JUAN MANUEL HOBBS PID: [id number] : 1995 DATE COLLECTED:01/09/2017 00:00 SPECIMEN: Fallopian Tube, Ectopic CLINICAL HISTORY: ECTOPIC ,ABD PAIN 1. R PARTIAL TUBE FINAL DIAGNOSIS: Fallopian Tube, Right, procedure not definitively specified: Histologic features of ectopic gestation. ICD10: O00.1 GROSS DESCRIPTION: Received in formalin, labeled with the patient's name and "partial tube R" is one circular fragment of le tissue measuring 2.0 x 1.7 x 1.7 cm. The surface is smooth and unevenly pigmented. Sectioning reveals a fluid-filled, cyst-like cavity measuring 1.0 x 1.0 x 0.5 cm. One sales representative consultant section is submitted in one cassette. ([id number]) ICD-9 CODES: CPT CODES: 1: 64897 Electronically Signed Out By Chloe Turpin MD [facility] Chloe Turpin MD [facility] Pathology [facility] [address], [place] [address] Technical component performed at [facility], [address], [place], [address]
--- NOTE | 2017-01-16 14:51 | DRSVH ---
CORRECTED ACCESSION/PLACER NUMBER ON 01/16/17 PROCEDURE: US PELVIC SONOGRAM + TRANSVAGINAL SONOGRAM INDICATIONS: abd pain, low bp, +preg, r/o ectopic TECHNIQUE: Real-time scanning was performed of the pelvic organs, with image documentation. Additional endovagi nal scanning was necessary due to incomplete visualization of the adnexal and endometrial structures by transabdominal scanning. COMPARISON: None. FINDINGS: (orthogonal measurements) Uterus size: 8.5 x 4.5 x 5.3 CM Endometrium thickness: 6 mm Right ovary size: 3.0 x 2.1 x 3.0 CM Left ovary size: 2.0 x 1.6 x 1.6 CM Transabdominal scanning: Limited scanning through the kidneys shows no hydronephrosis. There is righ t upper quadrant fluid. Endovaginal scanning: Uterus: Uterus is normal in size and appearance. Endometrium is within normal physiologic limits. N o intrauterine gestation is identified. Ovaries: The ovaries themselves are within normal physiologic limits. Possible small hypoechoic cyst ic areas the left ovary. There is a mixed echogenicity mass adjacent to the right ovary measuring 6.3 x 3.5 CM. There is a tub ular fluid-filled structure measuring 4.6 x 1.4 CM adjacent to left ovary. There is a mixed echogenic ity mass posterior to the uterus measuring approximately 7 x 3 CM. IMPRESSION: 1. No intrauterine gestation identified. 2. Multiple mixed echogenicity masses in the pelvis are concerning for blood products of various ages . 3. Tubular left adnexal structure may represent a fallopian tube containing fluid or blood which can be seen with hydrosalpinx, pyosalpinx, or tubo-ovarian abscess. 4. Given the likely pelvic blood products, positive test, and lack of intrauterine gestatio n findings are concerning for ectopic . Please note, no ectopic is specifically id entified although a possible cystic area in the left ovary is present. Please consider obstetric cons ultation. 5. Findings and recommendations discussed with Dr. Johnson via telephone [phone] at 6:40 PM on Dictated by: Napoleon Parikh M.D. on 01/09/2017 at 18:34 Approved by: Napoleon Parikh M.D. on 01/09/2017 at 18:48
== END 2017-01-10 10:43 | disposition home or self-care (01) ==
LOC: SED 13:03 → SAS 21:35 → OSC 23:05 → UNDOADMIN 23:05 → OSC 23:05 → SAS 01-10 10:43
PROVIDERS: ATTEND Obstetrics & Gynecology
DX: O00.10 Tubal pregnancy without intrauterine pregnancy (principal); I95.9 Hypotension, unspecified; R10.9 Unspecified abdominal pain; Z3A.01 Less than 8 weeks gestation of pregnancy
CPT/HCPCS: 36415; 59151; 74177; 76830; 76856; 80053; 81000; 84702; 85014; 85018; 85025; 86922; 96361; 96374; 99291; 99292; J0330; J0690; J1100; J1170; J2250; J2405; J2710; J3010; J7030; J7120; Q9967